=== PATIENT | male | born 1995 | race Caucasian/White ===

== ENCOUNTER 2016-10-16 17:34 | Emergency (ER) | payer SELFPAY ==
[~2016-10-16] VITALS: Ht 177.8 cm; Wt 150.0 kg
[~2016-10-16 17:34] MED LIST: BENZ100 PO; NAPR-576 PO; NAPR220T95 PO; PRED20 PO; ZITH250T PO
[2016-10-16 17:40] VITALS: BP 140/86; PULSE 95; RESP 15; TEMP 98.2; O2SAT 98
[2016-10-16] MEDS ORDERED: ERYTOIN10 EACH EYE (18:49)
--- NOTE | 2016-10-16 18:56 | PD ---
HPI Chief Complaint: Eye Problems/Injury Time Seen by Provider: 18:50 Travel History International Travel<30 days: No Contact w/Intl Traveler<30days: No Traveled to known affect area: No History of Present Illness HPI 21 yo male that presents to the ED for evaluation of bilateral eye itchiness and irritation. Ongoing for 3 days. started with cold like symptoms. cough and runny nose but this has improved. No chest pain, SOB. no sick contacts. No allergies to meds. PFSH Past Medical History ADHD: Yes Cancer: No Diminished Hearing: No Immunizations Current: Yes Seizures: No Thyroid Disease: No Ulcer: No Social History Alcohol Use: No Tobacco Use: No Substance Use: No Allergies-Medications (Allergen,Severity, Reaction): Coded Allergies: No Known Allergies (Verified , 10/16/16) Reported Meds & Prescriptions Reported Meds & Active Scripts Active Naproxen 500 Mg Tab 500 Mg PO Q12HR PRN Deltasone (Prednisone) 20 Mg Tab 20 Mg PO DIRECTED 2 TABS PO DAILY FOR 3 DAYS,THEN 1 TAB PO DAILY FOR 3 DAYS. Tessalon Perles (Benzonatate) 100 Mg Cap 100 Mg PO TID PRN Zithromax Z-Terry (Azithromycin) 250 Mg Tab 250 Mg PO DIRECTED 5 Days 500 MG (2 TABLETS) PO ON DAY 1, THEN 250 MG (1 TABLET) PO ON DAYS 2 TO 5. Reported Aleve (Naproxen Sodium) 220 Mg Tab 220 Mg PO TODAY Review of Systems Except as stated in HPI: all other systems reviewed are Neg Physical Exam Narrative GENERAL: SKIN: Warm and dry. HEAD: Atraumatic. Normocephalic. EYES: Pupils equal and round 4 mm reactive to light and accomodation. No scleral icterus. No injection or drainage. Fluorecyn test shows no sign of acute disease. EOM intact. No discharge or mass. ENT: No nasal bleeding or discharge. Mucous membranes pink and moist. Tongue is midline, no uvula deviation. Nostril mucosa is clear. TMs are WNL. No mastoid tenderness. No lymphadenopathy. NECK: Trachea midline. No JVD. CARDIOVASCULAR: Regular rate and rhythm. RESPIRATORY: No accessory muscle use. Clear to auscultation. Breath sounds equal bilaterally. GASTROINTESTINAL: Abdomen soft, non-tender, nondistended. Hepatic and splenic margins not palpable. MUSCULOSKELETAL: Extremities without clubbing, cyanosis, or edema. No obvious deformities. NEUROLOGICAL: Awake and alert. No obvious cranial nerve deficits. Motor grossly within normal limits. Five out of 5 muscle strength in the arms and legs. Normal speech. PSYCHIATRIC: Appropriate mood and affect; insight and judgment normal. Data Data Last Documented VS Vital Signs Date Time Temp Pulse Resp B/P Pulse Ox O2 Delivery O2 Flow Rate FiO2 10/16/16 17:40 98.2 95 15 140/86 98 MDM Medical Decision Making Medical Screen Exam Complete: Yes Emergency Medical Condition: Yes Medical Record Reviewed: Yes Differential Diagnosis conjunctivitis vs sinusitis vs bacterial conjunctivitis Narrative Course 21-year-old male that presents to the ED for evaluation of eye irritation. Patient was properly examined and was found to have signs and symptoms consistent with appears to be conjunctivitis. Likely viral. We'll treat with erythromycin ointment. Told to take OTC medicines as needed. Follow with PCP. Note for work. See ED if worsening symptoms. Diagnosis Primary Impression: Conjunctivitis Qualified Code: B30.9 - Acute viral conjunctivitis of both eyes Patient Instructions: General Instructions Departure Forms: Tests/Procedures, Work Release Enter return to work date: Oct 20, 2016 Additional Instructions: Motrin and Tylenol for pain and fever. You can use [id number] antihistamine as well as well as Mucinex as needed for runny nose and congestion. Cough drops for cough as needed. Drink plenty of fluids. Follow-up with PCP. See ED for worsening symptoms. Med/Other Pt SpecificInfo: Prescription(s) given Scripts Erythromycin Opth Oint 5 Mg/Gm Oint1 Applic EACH EYE BID #1 TUBE Prov:Hitesh Lee MD 10/16/16 Disposition: 01 DISCHARGE HOME Condition: Stable Donnie Vital Oct 16, 2016 18:56
== END 2016-10-16 19:13 | disposition home or self-care (01) ==
LOC: NEPB 17:34
DX: B30.9 Viral conjunctivitis, unspecified (principal)
CPT/HCPCS: 99282

== ENCOUNTER 2017-03-05 14:50 | Emergency (ER) | payer SELFPAY ==
[~2017-03-05] VITALS: Ht 180.3 cm; Wt 138.0 kg
[~2017-03-05 14:50] MED LIST changes: +ERYTOIN10 EACH EYE
[2017-03-05 14:52] VITALS: BP 134/84; PULSE 93; RESP 17; TEMP 97.7; O2SAT 98
[2017-03-05] MEDS ORDERED: ERYTOIN10 EACH EYE (15:12)
[2017-03-05] MEDS ORDERED: AMOX500C PO (15:14)
--- NOTE | 2017-03-05 15:17 | PD ---
HPI Chief Complaint: Cold / Flu Symptoms Time Seen by Provider: 15:14 Travel History International Travel<30 days: No Contact w/Intl Traveler<30days: No Traveled to known affect area: No History of Present Illness HPI 22-year-old white male presents to emergency department accompanied by his mother for evaluation of coughing congestion. He states he's been sick now for nearly 1-2 weeks. He has had no fever chills but states that he has a lot of sinus congestion, runny nose, cough, beige to yellow sputum, mild ear discomfort , itchy watery eyes and general malaise. Positive myalgias and arthralgias. He thought he may have had pinkeye and started using some leftover erythromycin ointment without relief. He's had no nausea vomiting. No abdominal pain or diarrhea. No fever chills. No rashes. PFSH Past Medical History ADHD: Yes Cancer: No Diminished Hearing: No Immunizations Current: Yes Seizures: No Thyroid Disease: No Ulcer: No Tetanus Vaccination: Unknown Influenza Vaccination: No ?: Not Past Surgical History Surgical History: No Previous Surgery Social History Alcohol Use: Yes (occ) Tobacco Use: Yes Substance Use: No Allergies-Medications (Allergen,Severity, Reaction): Coded Allergies: No Known Allergies (Verified , 03/05/17) Reported Meds & Prescriptions Reported Meds & Active Scripts Active Reported Erythromycin Opth Oint 5 Mg/Gm Oint 1 Applic EACH EYE BID Review of Systems Except as stated in HPI: all other systems reviewed are Neg Physical Exam Narrative GENERAL: Well-developed, well-nourished in no acute distress. Nontoxic appearing. HEAD: Normocephalic, atraumatic. EYES: Pupils equal round and reactive. Extraocular motions intact. No scleral icterus. Mild injection bilaterally but no drainage. ENT: TMs clear without erythema. The external auditory canals clear. Nose: clear . Posterior pharynx is mildly erythematous and moist. No tonsillar edema or exudate. Uvula midline. Airway patent. NECK: Trachea midline.Supple, nontender, moves head freely. No central bony tenderness or spasm. CARDIOVASCULAR: Regular rate and rhythm without murmurs, gallops, or rubs. RESPIRATORY: Clear to auscultation. Breath sounds equal bilaterally. No wheezes , rales, or rhonchi. GASTROINTESTINAL: Abdomen soft, non-tender, nondistended. No hepato-splenomegaly , or palpable masses. No guarding. EXTREMITIES: No clubbing, cyanosis, or edema. No joint tenderness, effusion, or edema noted. BACK: Nontender without deformity or crepitance. No flank tenderness. Data Data Last Documented VS Vital Signs Date Time Temp Pulse Resp B/P Pulse Ox O2 Delivery O2 Flow Rate FiO2 03/05/17 14:52 97.7 93 17 134/84 98 Room Air MDM Medical Decision Making Medical Screen Exam Complete: Yes Emergency Medical Condition: Yes Medical Record Reviewed: Yes Differential Diagnosis MDM: High Differential diagnoses: Pneumonia, bronchitis, URI, asthma, RAD, conjunctivitis Narrative Course I expect elevation of the symptoms are most likely viral etiology. The patient is insistent that he feels that this may be a bacterial cause. I've agreed to cover him with amoxicillin. This is URI Diagnosis Primary Impression: URI (upper respiratory infection) Patient Instructions: General Instructions Departure Forms: Tests/Procedures, Work Release Special Instructions: No work 2 days. Med/Other Pt SpecificInfo: Prescription(s) given Scripts Amoxicillin 500 Mg [id number] Mg PO TID #30 CAP Prov:Dmitriy Cortes MD 03/05/17 Disposition: 01 DISCHARGE HOME Condition: Stable Riley Owens March 05, 2017 15:17
== END 2017-03-05 16:05 | disposition home or self-care (01) ==
LOC: NEPK 14:50
DX: J06.9 Acute upper respiratory infection, unspecified (principal); Z72.0 Tobacco use
CPT/HCPCS: 99283

== ENCOUNTER 2017-06-26 21:52 | Emergency (ER) | payer SELFPAY ==
[2017-06-26 21:52] VITALS: BP 133/73; PULSE 100; RESP 16; TEMP 99.3; O2SAT 95
[~2017-06-26 21:52] MED LIST changes: +AMOX500C PO; -BENZ100 PO; -NAPR-576 PO; -NAPR220T95 PO; -PRED20 PO; -ZITH250T PO
[2017-06-26] MEDS ORDERED: IBUPROFEN 600 MG TAB PO ONE (22:15)
--- NOTE | 2017-06-26 22:38 | PD ---
HPI Chief Complaint: Pain: Acute or Chronic Time Seen by Provider: 22:08 Travel History International Travel<30 days: No Contact w/Intl Traveler<30days: No Traveled to known affect area: No History of Present Illness HPI Patient is a 22-year-old male who presents to emergency room complaints of left foot pain. Patient reports that he was wearing flip flops yesterday and was playing basketball, reports that he noticed increased pain to the bottom of his left foot at the end of the nigh. Patient reports that he may have injured his left foot sometime yesterday. No other c/o. PFSH Past Medical History ADHD: Yes Cancer: No Diminished Hearing: No Immunizations Current: Yes Seizures: No Thyroid Disease: No Ulcer: No ?: Not Social History Alcohol Use: Yes (occ) Tobacco Use: Yes Substance Use: No Allergies-Medications (Allergen,Severity, Reaction): Coded Allergies: No Known Allergies (Verified , 03/05/17) Reported Meds & Prescriptions Reported Meds & Active Scripts Active Tramadol (Tramadol HCl) 50 Mg Tab 50 Mg PO Q6H PRN Ibuprofen 600 Mg Tab 600 Mg PO Q6H PRN Review of Systems General / Constitutional: No: Fever Eyes: No: Visual changes HENT: No: Headaches Cardiovascular: No: Chest Pain or Discomfort Respiratory: No: Shortness of Breath Gastrointestinal: No: Abdominal Pain Genitourinary: No: Dysuria Musculoskeletal: No: Pain Skin: Positive Other (left foot pain), No Rash Neurologic: No: Weakness Psychiatric: No: Depression Endocrine: No: Polydipsia Hematologic/Lymphatic: No: Easy Bruising Physical Exam Narrative GENERAL: Well-nourished, well-developed patient. SKIN: Focused skin assessment warm/dry. HEAD: Normocephalic. EYES: No scleral icterus. No injection or drainage. NECK: Supple, trachea midline. No JVD or lymphadenopathy. CARDIOVASCULAR: Regular rate and rhythm without murmurs, gallops, or rubs. RESPIRATORY: Breath sounds equal bilaterally. No accessory muscle use. GASTROINTESTINAL: Abdomen soft, non-tender, nondistended. MUSCULOSKELETAL: No cyanosis, or edema. left foot: Patient with pain with plantar flexion of left foot, pulses intact, neurovascularly intact, no obvious injuries. right foot: normal exam BACK: Nontender without obvious deformity. No CVA tenderness. Data Data Last Documented VS Vital Signs Date Time Temp Pulse Resp B/P (MAP) Pulse Ox O2 Delivery O2 Flow Rate FiO2 06/26/17 21:52 99.3 100 16 133/73 (93) 95 Room Air Orders Orders Foot, Complete ([id number]) (06/26/17 ) Ice/Cold Pack (06/26/17 22:13) Ibuprofen (Motrin) (06/26/17 22:15) Crutches (06/26/17 23:11) MDM Medical Decision Making Medical Screen Exam Complete: Yes Emergency Medical Condition: Yes Interpretation(s) Vital Signs Date Time Temp Pulse Resp B/P (MAP) Pulse Ox O2 Delivery O2 Flow Rate FiO2 06/26/17 21:52 99.3 100 16 133/73 (93) 95 Room Air Differential Diagnosis Differential includes plantar fasciitis, tendonitis, fracture Narrative Course Patient is a 22 year old male who presents to ER with complaints of left sided foot pain. There is no obvious deformities or swelling. Xray of foot ordered. Last Impressions Foot X-Ray 06/26/17 0000 Signed Impressions: Service Date/Time: Monday, June 26, 2017 22:21 - CONCLUSION: Soft tissue swelling without fracture or subluxation. Gama Crocker MD xray results reviewed with patient. patient with most likely plantar fasciitis. discussed need for ice and nsaids. he will follow up with his pcp and orthopedic surgery as needed. Diagnosis Primary Impression: Plantar fasciitis of left foot Patient Instructions: General Instructions Additional Instructions: Please follow up with your primary care doctor Return to ER as needed Return to ER if symptoms worsen or progress Rest/ice and elevate your foot Med/Other Pt SpecificInfo: Prescription(s) given Scripts Tramadol (Tramadol) 50 Mg Tab 50 MG PO Q6H Y for PAIN, #12 TAB 0 Refills Prov: Porsha Rachel DO 06/26/17 Ibuprofen (Ibuprofen) 600 Mg Tab 600 MG PO Q6H Y for Pain/Inflammation, #40 TAB 0 Refills Prov: Porsha Rachel DO 06/26/17 Disposition: 01 DISCHARGE HOME Condition: Stable Porsha Rachel DO Jun 26, 2017 22:38
--- NOTE | 2017-06-26 23:00 | RADRPT ---
EXAM DATE/TIME: 06/26/2017 22:21 [facility] COMPARISON: No previous studies available for comparison. INDICATIONS : Left foot pain on the lateral side MEDICAL HISTORY : None. SURGICAL HISTORY : None. ENCOUNTER: Initial ACUITY: 1 day PAIN SCORE: 5/10 LOCATION: Left foot FINDINGS: Bones of the left foot are intact and normally aligned. There is soft tissue swelling evident at the level of the midfoot/forefoot. No radiopaque foreign body. CONCLUSION: Soft tissue swelling without fracture or subluxation. Gama Crocker MD on June 26, 2017 at 22:58 Board Certified Radiologist. This report was verified electronically.
[2017-06-26] MEDS ORDERED: TRAM50TA PO (23:10)
[2017-06-26] MEDS ORDERED: IBUP-232 PO (23:10)
== END 2017-06-26 23:28 | disposition home or self-care (01) ==
LOC: NEPD 21:52
DX: M72.2 Plantar fascial fibromatosis (principal)
CPT/HCPCS: 73630; 99283; E0113

== ENCOUNTER 2017-08-22 12:48 | Emergency (ER) | payer SELFPAY ==
[~2017-08-22] VITALS: Ht 180.3 cm; Wt 142.0 kg
[~2017-08-22 12:48] MED LIST changes: -AMOX500C PO; -ERYTOIN10 EACH EYE; +IBUP-232 PO; +TRAM50TA PO
[2017-08-22 12:50] VITALS: BP 125/77; PULSE 91; RESP 16; TEMP 98.2; O2SAT 97
[2017-08-22] MEDS ORDERED: ERYTOIN10 EACH EYE (13:26)
[2017-08-22] MEDS ORDERED: FLUT1SPR9 EACH NARE (13:26)
--- NOTE | 2017-08-22 13:27 | PD ---
HPI . Eye irritation Chief Complaint: Eye Problems/Injury Time Seen by Provider: 13:11 Travel History International Travel<30 days: No Contact w/Intl Traveler<30days: No Traveled to known affect area: No History of Present Illness HPI 22-year-old male patient presents emergency department for evaluation of bilateral itchy eyes with irritation 3 days. Patient denies any eye pain, blurred vision, visual changes. Patient denies any foreign body sensation in his eyes. Patient denies any eye trauma. Patient states when he wakes up there is thick yellow discharge in his eyelashes. Patient does state that he has had a runny nose and sinus congestion and feels that might be contributing to his eye irritation. Patient denies any fevers, chills, chest pain, shortness breath, ear pain, throat pain, abdominal pain, nausea, vomiting, diarrhea. Patient has no major medical history and doesn't take any daily medication. PFSH Past Medical History ADHD: Yes Cancer: No Diminished Hearing: No Immunizations Current: Yes Seizures: No Thyroid Disease: No Ulcer: No Social History Alcohol Use: Yes (occ) Tobacco Use: Yes Substance Use: No Allergies-Medications (Allergen,Severity, Reaction): Coded Allergies: No Known Allergies (Verified Adverse Reaction, Unknown, 08/22/17) Reported Meds & Prescriptions Reported Meds & Active Scripts Active Flonase Allergy Relief Children Nasal Concord (Fluticasone Nasal Concord) 50 Mcg/ Act Concord 1 Concord EACH NARE DAILY 50 mcg/spray Erythromycin Opth Oint 5 Mg/Gm Oint 1 Applic EACH EYE QID 5 Days Tramadol (Tramadol HCl) 50 Mg Tab 50 Mg PO Q6H PRN Ibuprofen 600 Mg Tab 600 Mg PO Q6H PRN Review of Systems Except as stated in HPI: all other systems reviewed are Neg Physical Exam Narrative GENERAL: Well-nourished, well-developed 22-year-old male patient in no acute distress. Nontoxic appearing. SKIN: Focused skin assessment warm/dry. HEAD: Normocephalic. Atraumatic. EYES: Bilateral eyes mildly injected. No discharge noted at this time. PERRLA demonstrated, extraocular motions intact bilaterally. ENT: Mucosa pink and moist. No erythema or exudates. No uvular edema. No uvular , palatal, or tonsillar deviation. Airway patent. Nasal turbinates appear mildly hypertrophic without nasal blood, purulent drainage or septal hematoma. NECK: Supple, trachea midline. No JVD or lymphadenopathy. CARDIOVASCULAR: Regular rate and rhythm without murmurs, gallops, or rubs. RESPIRATORY: Breath sounds equal bilaterally. No accessory muscle use. GASTROINTESTINAL: Abdomen soft, non-tender, nondistended. MUSCULOSKELETAL: No cyanosis, or edema. BACK: Nontender without obvious deformity. No CVA tenderness. Data Data Last Documented VS Vital Signs Date Time Temp Pulse Resp B/P (MAP) Pulse Ox O2 Delivery O2 Flow Rate FiO2 08/22/17 13:32 08/22/17 12:50 98.2 91 16 97 Orders Orders Ed Discharge Order (08/22/17 13:27) MDM Medical Decision Making Medical Screen Exam Complete: Yes Emergency Medical Condition: Yes Differential Diagnosis Differential diagnoses include but not limited to conjunctivitis, seasonal allergies, congestion, URI, viral syndrome Narrative Course 22-year-old male patient presents emergency department for evaluation of bilateral itchy irritated eyes 3 days. Patient denies any fevers, chills, malaise patient states that he has yellow discharge in his eyelashes when he wakes up. Patient denies any eye pain or blurred vision. He states he has had this in the past and his primary care usually prescribed erythromycin ointment and the problem resolves. Patient has been evaluated for this in the past and his primary care believes are some kind of correlation between his sinus congestion and his eye irritation. Patient discharged home with a prescription for Flonase for sinus congestion and erythromycin ointment for conjunctivitis. Diagnosis Primary Impression: Conjunctivitis Qualified Codes: H10.9 - Unspecified conjunctivitis Additional Impression: Sinus congestion Referrals: Primary Care Physician Patient Instructions: Conjunctivitis (ED), General Instructions Additional Instructions: Please return to emergency department if your symptoms return or worsen. Follow up with your primary care provider. Take medications as prescribed. Warm moist compresses to eye will help facilitate drainage. May alternate ibuprofen and Tylenol as needed for pain and fevers. Med/Other Pt SpecificInfo: Prescription(s) given Scripts Fluticasone Nasal Concord (Flonase Allergy Relief Children Nasal Concord) 50 Mcg/ Act Concord 1 SPRAY EACH NARE DAILY for Allergy Management, #1 BOTTLE 0 Refills 50 mcg/spray Prov: Yolis Camarillo 08/22/17 Erythromycin Opth Oint (Erythromycin Opth Oint) 5 Mg/Gm Oint 1 APPLIC EACH EYE QID for Infection for 5 Days, #1 TUBE 0 Refills Prov: Yolis Camarillo 08/22/17 Disposition: 01 DISCHARGE HOME Condition: Stable Yolis Caamrillo Aug 22, 2017 13:27
== END 2017-08-22 13:43 | disposition home or self-care (01) ==
LOC: NEPK 12:48
DX: H10.9 Unspecified conjunctivitis (principal); R09.81 Nasal congestion; F90.9 Attention-deficit hyperactivity disorder, unspecified type; Z72.0 Tobacco use; Z79.899 Other long term (current) drug therapy
CPT/HCPCS: 99284

== ENCOUNTER 2018-02-05 16:05 | Emergency (ER) | payer SELFPAY ==
[~2018-02-05] VITALS: Ht 180.3 cm; Wt 120.0 kg
[~2018-02-05 16:05] MED LIST changes: +ERYTOIN10 EACH EYE; +FLUT1SPR9 EACH NARE
[2018-02-05 16:09] VITALS: BP 134/72; PULSE 78; RESP 16; TEMP 97.5; O2SAT 98
--- NOTE | 2018-02-05 16:42 | RADRPT ---
EXAM DATE/TIME: 02/05/2018 16:33 [facility] COMPARISON: No previous studies available for comparison. INDICATIONS : Pt state he has a "pinching" sensation in his left upper chest. Pt states no trauma. MEDICAL HISTORY : None. SURGICAL HISTORY : None. ENCOUNTER: Initial ACUITY: 4 - 6 days PAIN SCORE: 2/10 LOCATION: Left chest FINDINGS: PA and lateral views of the chest demonstrate the lungs to be symmetrically aerated without evidence of mass, infiltrate or effusion. The cardiomediastinal contours are unremarkable. Osseous structure s are intact. CONCLUSION: Normal examination. Josue Riley MD on February 05, 2018 at 16:40 Board Certified Radiologist. This report was verified electronically.
[2018-02-05 16:45] LABS: AUTOMATED NEUTROPHIL # 3.9 TH/MM3 (1.8-7.7); BASOPHIL # 0.1 TH/MM3 (0-0.2); BASOPHIL % 0.8 % (0.0-2.0); EOSINOPHIL # 0.1 TH/MM3 (0-0.4); EOSINOPHIL % 1.5 % (0.0-4.0); HEMATOCRIT 44.3 % (39.0-51.0); HEMOGLOBIN 15.3 GM/DL (13.0-17.0); LYMPH % 39.8 % (9.0-44.0); LYMPHOCYTE # 3.1 TH/MM3 (1.0-4.8); MEAN CELL VOLUME 87.6 FL (80.0-100.0); MEAN CORPUSCULAR HEMOGLOBIN 30.3 PG (27.0-34.0); MEAN CORPUSCULAR HGB CONC 34.6 % (32.0-36.0); MEAN PLATELET VOLUME 7.9 FL (7.0-11.0); MONO % 7.6 % (0.0-8.0); MONOCYTE # 0.6 TH/MM3 (0-0.9); NEUT % 50.3 % (16.0-70.0); PLATELET COUNT 295 TH/MM3 (150-450); RED BLOOD COUNT 5.05 MIL/MM3 (4.50-5.90); RED CELL DISTRIBUTION WIDTH 12.9 % (11.6-17.2); WHITE BLOOD COUNT 7.7 TH/MM3 (4.0-11.0)
[2018-02-05 17:06] LABS: BICARBONATE 26.3 MEQ/L (21.0-32.0); BLOOD UREA NITROGEN 21 MG/DL (7-18); CALCIUM 9.2 MG/DL (8.5-10.1); CHLORIDE 104 MEQ/L (98-107); CREATININE 1.35 MG/DL (0.60-1.30); GLOMERULAR FILTRATION RATE 64 ML/MIN (>89); GLUCOSE,RANDOM 92 MG/DL (74-106); SODIUM (NA) 138 MEQ/L (136-145)
[2018-02-05 17:11] LABS: TROPONIN I LESS THAN 0.02 NG/ML (0.02-0.05)
[2018-02-05 18:15] VITALS: BP 110/66; PULSE 93; RESP 20; O2SAT 97
[2018-02-05 18:19] VITALS: BP 110/66; PULSE 81; RESP 20; O2SAT 99
--- NOTE | 2018-02-05 19:10 | PD ---
HPI Chief Complaint: Chest Pain Time Seen by Provider: 18:12 Travel History International Travel<30 days: No Contact w/Intl Traveler<30days: No Traveled to known affect area: No History of Present Illness HPI 23 YO M with PMH of ADD, not on medications, presents to the ED for evaluation of intermittent palpitations, left sided chest tightness. The patient can identify no alleviating or exacerbating factors. He states that the episodes occur randomly, last variable periods of time. Patient denies associated SOB, N/ V, diaphoresis. Patient is asymptomatic on presentation. He endorses drinking unsweet tea throughout the course of every day. He cannot quantify his intake. He denies cardiac history or chronic health problems. He takes no daily medications. He has never had a heart work up. Denies family history of [place]. Endorses increased stress 2/2 graduating from [employer]. He does not have a PCP. PFSH Past Medical History ADHD: Yes Cancer: No Cardiovascular Problems: No Diminished Hearing: No Immunizations Current: Yes Seizures: No Thyroid Disease: No Ulcer: No Past Surgical History Surgical History: No Previous Surgery Social History Alcohol Use: Yes (occ) Tobacco Use: Yes Substance Use: No Allergies-Medications (Allergen,Severity, Reaction): Coded Allergies: No Known Allergies (Verified Adverse Reaction, Unknown, 08/22/17) Reported Meds & Prescriptions Reported Meds & Active Scripts Active No Active Prescriptions or Reported Medications Review of Systems Except as stated in HPI: all other systems reviewed are Neg Physical Exam Narrative GENERAL: Well-nourished, well-developed obese white male in no acute distress. SKIN: Focused skin assessment warm/dry. HEAD: Normocephalic. EYES: No scleral icterus. No injection or drainage. NECK: Supple, trachea midline. No JVD or lymphadenopathy. CARDIOVASCULAR: Regular rate and rhythm without murmurs, gallops, or rubs. RESPIRATORY: Breath sounds clear and equal bilaterally. No accessory muscle use. GASTROINTESTINAL: Abdomen soft, non-tender, nondistended. Active bowel sounds. MUSCULOSKELETAL: No cyanosis, or edema. Moves extremities spontaneously. BACK: Nontender without obvious deformity. No CVA tenderness. Data Data Last Documented VS Vital Signs Date Time Temp Pulse Resp B/P (MAP) Pulse Ox O2 Delivery O2 Flow Rate FiO2 02/05/18 20:12 02/05/18 19:32 75 16 98 Room Air 02/05/18 16:09 97.5 Orders Orders Electrocardiogram (02/05/18 ) Complete Blood Count With Diff (02/05/18 16:12) Basic Metabolic Panel (Bmp) (02/05/18 16:12) Ckmb (Isoenzyme) Profile (02/05/18 16:12) Troponin I (02/05/18 16:12) Iv Access Insert/Monitor (02/05/18 16:12) Ecg Monitoring (02/05/18 16:12) Oxygen Administration (02/05/18 16:12) Oximetry (02/05/18 16:12) Chest, Pa & Lat (02/05/18 16:12) CKMB (02/05/18 16:20) CKMB% (02/05/18 16:20) Drug Screen, Random Urine (02/05/18 18:12) Alcohol (Ethanol) (02/05/18 16:20) Ed Discharge Order (02/05/18 20:06) Labs Laboratory Tests Test 02/05/18 16:20 White Blood Count 7.7 TH/MM3 Red Blood Count 5.05 MIL/MM3 Hemoglobin 15.3 GM/DL Hematocrit 44.3 % Mean Corpuscular Volume 87.6 FL Mean Corpuscular Hemoglobin 30.3 PG Mean Corpuscular Hemoglobin Concent 34.6 % Red Cell Distribution Width 12.9 % Platelet Count 295 TH/MM3 Mean Platelet Volume 7.9 FL Neutrophils (%) (Auto) 50.3 % Lymphocytes (%) (Auto) 39.8 % Monocytes (%) (Auto) 7.6 % Eosinophils (%) (Auto) 1.5 % Basophils (%) (Auto) 0.8 % Neutrophils # (Auto) 3.9 TH/MM3 Lymphocytes # (Auto) 3.1 TH/MM3 Monocytes # (Auto) 0.6 TH/MM3 Eosinophils # (Auto) 0.1 TH/MM3 Basophils # (Auto) 0.1 TH/MM3 CBC Comment DIFF FINAL Differential Comment Blood Urea Nitrogen 21 MG/DL Creatinine 1.35 MG/DL Random Glucose 92 MG/DL Calcium Level 9.2 MG/DL Sodium Level 138 MEQ/L Potassium Level 3.8 MEQ/L Chloride Level 104 MEQ/L Carbon Dioxide Level 26.3 MEQ/L Anion Gap 8 MEQ/L Estimat Glomerular Filtration Rate 64 ML/MIN Total Creatine Kinase 168 U/L Creatine Kinase MB LESS THAN 0.5 NG/ML Troponin I LESS THAN 0.02 NG/ML Ethyl Alcohol Level 3 MG/DL MDM Medical Decision Making Medical Screen Exam Complete: Yes Emergency Medical Condition: Yes Differential Diagnosis Anxiety versus arrhythmia versus less likely ACS versus other Narrative Course 23 YO M with PMH of ADD, not on medications, presents to the ED for evaluation of intermittent palpitations, left sided chest tightness. No alleviating or exacerbating factors. He states that the episodes occur randomly, last variable periods of time. Patient denies associated SOB, N/V, diaphoresis. He endorses drinking unsweet tea throughout the course of every day. He cannot quantify his intake. He denies cardiac history or chronic health problems. He takes no daily medications. He has never had a heart work up. Denies family history of [place]. Endorses increased stress 2/2 graduating from [employer]. He does not have a PCP. Vitals reviewed. Physical exam reveals an obese white male no acute distress. No appreciable M/R/G. Chest CTAB. Abdomen soft and nontender. EKG: Rate 69, sinus rhythm. Normal intervals. Normal axis. No acute ST changes. Reviewed by Dr. Love. CXR: Normal per radiology read. Cardiac enzymes negative 1. CBC, CMP, tox screen unremarkable. I discussed the results of the workup with the patient and his family member at bedside. I recommended he follow-up with the [facility] to establish primary care and possibly wear a Holter monitor for further evaluation. The patient and his family member are able to his care plan. He is stable and discharged home. Diagnosis Primary Impression: Intermittent palpitations Referrals: [facility] Additional Instructions: Rest, hydrate. Return to normal, gentle activity as tolerated. Avoid known stressors as possible. Follow up with the [facility] to establish primary care and have further evaluation of your symptoms. Return to the ED for worsening symptoms or any urgent/ emergent medical condition. Scripts No Active Prescriptions or Reported Meds Disposition: 01 DISCHARGE HOME Condition: Stable Tashia Lakhani Feb 05, 2018 19:10
[2018-02-05 19:32] VITALS: BP 121/67; PULSE 75; RESP 16; O2SAT 98
--- NOTE | 2018-02-05 23:27 | EKG ---
Date Performed: 02/05/2018 Time Performed: 18:40:52 PTAGE: 23 years EKG: Sinus rhythm WITH SINUS ARRHYTHMIA NORMAL ECG INTERPRETATION BASED ON A DEFAULT AGE OF 38 YEARS Since the PREVIOUS TRACING , no significant change noted DOCTOR: Srikanth Cortes Interpretating Date/Time 02/05/2018 23:26:12
--- NOTE | 2018-02-05 23:30 | EKG ---
Date Performed: 02/05/2018 Time Performed: 16:15:28 PTAGE: 23 years EKG: Sinus rhythm WITH MARKED SINUS ARRHYTHMIA BORDERLINE ECG PREVIOUS TRACING : 03/27/2005 01.58 Since the previous tracing, no significant change noted DOCTOR: Srikanth Cortes Interpretating Date/Time 02/05/2018 23:29:40
== END 2018-02-05 20:16 | disposition home or self-care (01) ==
LOC: NEPE 16:05
DX: R00.2 Palpitations (principal); Z72.0 Tobacco use
CPT/HCPCS: 71046; 80048; 80307; 82550; 82552; 84484; 85025; 93005; 99285